=== PATIENT | male | born 2005 | race Caucasian/White ===

== ENCOUNTER 2025-06-07 14:33 | Emergency (ER) | payer BC, SELFPAY ==
[2025-06-07 14:48] VITALS: BP 155/95; PULSE 97; RESP 18; TEMP 36.7; O2SAT 98; BMI 26.7
--- NOTE | 2025-06-07 14:54 | CRLHL7_ITS ---
For Patients: As a result of the Century Cures Act, medical imaging exams and procedure reports are released immediately into your electronic medical record. You may view this report before your referring provider. If you have questions, please contact your health care provider. INDICATION: Right testicular pain. FINDINGS: A scrotal ultrasound shows normal size, contour, and echogenicity of the testicles with the right testicle measuring 4.9 x 2.7 x 2.5 cm and the left testicle measuring 4.1 x 3.1 x 2.5 cm. Color and spectral Doppler analysis shows normal arterial and venous blood flow to both testicles. Normal appearance of the epididymides. IMPRESSION: No acute abnormalities of the testicles or epididymides identified. Dictated by Jose Chau MD @ 06/07/2025 4:01:00 PM Dictated by: Jose Chau MD @ 06/07/2025 16:01:11 (Electronically Signed)
[2025-06-07 16:22] LABS: Appearance Urine Clear (Clear)
--- NOTE | 2025-06-07 17:13 | ED_ITS ---
[facility] - General Adult General Date Seen: 06/07/25 Chief complaint: Groin Pain Stated complaint: Testicular pain Source: patient Mode of arrival: ambulatory Limitations: no limitations History of Present Illness HPI narrative: Patient is a 20-year-old male presenting for right scrotal pain. Patient states he woke up about 06:30 with this pain. Pain is persisted until 11:30 and then seem to improve. Had another currently the pain that again improved. States the pain is currently a dull ache but has not fully gone away. States the pain never seem to be severe and was always tolerable. Has not taking anything yet for pain. Does not notice any discharge from his urethra. Denies dysuria, polyuria. No concern of STDs. States he initially thought there was a swollen cord on his testicle. Has never had pain like this before. Pain does not radiate to his abdomen. No associated nausea. Pain seems to be mostly on top of the testicle. Related Data Home Medications ?Medication ?Instructions ?Recorded ?Confirmed No Known Home Medications 06/07/2505/26 Allergies Allergy/AdvReac Type Severity Reaction Status Date / Time No Known Drug Allergies Allergy Verified 06/07/25 14:52 Review of Systems Narrative: Pertinent systems reviewed and were negative unless stated in HPI Exam Narrative: Exam Narrative: Const: Well-nourished, Well-developed, in no distress Eyes: PERRL, no conjunctival injection, and symmetrical lids HENT: Atraumatic external nose and ears. Moist mucous membranes. GI: Nontender/Nondistended, No rebound or guarding. : Normal cremasteric reflexes bilaterally, no swelling noted to the scrotum, mild tenderness to the superior pole of the right testicle. MSK:Extremities w/o deformity, Normal Active ROM Skin: Warm, Dry. No rashes or lesions. Neuro: Normal Muscle tone, No focal neurological deficits. Psych: Awake, Alert, & Oriented x3. Appropriate mood and affect. Const: Vital Signs, click to edit/add: Vital Signs - 24 hr 06/07/25 14:48 Temperature 98.1 F Pulse Rate [Pulse Oximeter] 97 Respiratory Rate 18 Blood Pressure [Ri ght Upper Arm] 155/95 H Pulse Oximetry 98 Oxygen Delivery Me thod Room Air Course Vital Signs Vital signs: Initial Vital Signs Temperature 98.1 F 06/07/25 14:48 Temperature Source Temporal Artery Scan 06/07/25 14:48 Pulse Rate 97 06/07/25 14:48 Pulse Rhythm Regular 06/07/25 14:48 Pulse Strength 3+ Normal 06/07/25 14:48 Respiratory Rate 18 06/07/25 14:48 Blood Pressure 155/95 H 06/07/25 14:48 Blood Pressure Mean 115 H 06/07/25 14:48 Blood Pressure Position Sitting 06/07/25 14:48 Pulse Oximetry 98 06/07/25 14:48 Oxygen Delivery Method Room Air 06/07/25 14:48 Vital Signs Temperature 98.1 F 06/07/25 14:48 Pulse Rate 97 06/07/25 14:48 Respiratory Rate 18 06/07/25 14:48 Blood Pressure 155/95 H 06/07/25 14:48 Pulse Oximetry 98 06/07/25 14:48 Oxygen Delivery Method Room Air 06/07/25 14:48 Temperature 98.1 F 06/07/25 14:48 Pulse Rate 97 06/07/25 14:48 Respiratory Rate 18 06/07/25 14:48 Blood Pressure 155/95 H 06/07/25 14:48 Pulse Oximetry 98 06/07/25 14:48 Oxygen Delivery Method Room Air 06/07/25 14:48 Medical Decision Making MDM Narrative Medical decision making narrative: Patient is a 20-year-old male presenting for testicular pain. Urinalysis was ordered along with a scrotal ultrasound. Differential at this time includes epididymitis, testicular torsion, varicocele, orchitis Urinalysis returned showing no acute concerning abnormalities. Ultrasound was done and returned showing no acute abnormalities. At this time I believe he is safe for discharge. He is agreeable to this plan. This time I cannot say for certain what is causing his symptoms but did give him return precautions. Lab Data Labs: Lab Results 06/07/25 Range/Units 15:20 Urine Color Yellow (Yellow) Urine Appearance Clear (Clear) Urine pH 7.0 (5.0-8.5) Ur Specific [place] 1.020 (1.000-1.030) Urine Protein Negative (Negative) Urine Glucose (UA) Negative (Negative) Urine Ketones Negative (Negative) Urine Blood Negative (Negative) Urine Nitrite Negative (Negative) Urine Bilirubin Negative (Negative) Urine Urobilinogen 1.0 (0.2-1.0) Ur Leukocyte Esterase Negative (Negative) Urine RBC 0-2 (0-2) Urine WBC 0-2 (0-5) Ur Squamous Epith Cells None (None-Few) Urine Bacteria None (None) Discharge Plan Discharge Clinical Impression: Right testicular pain Patient Disposition: Home, Self-Care Condition: Stable Instructions: Testicle Pain (ED) Additional Instructions: Take Tylenol and ibuprofen for your pain. Return to the emergency department for new or worsening symptoms. If you develops sudden severe testicular pain please return to emergency department immediately for re-evaluation. Prescriptions: No Action No Known Home Medications Stand Alone Forms: [employer] Info Instructions
== END 2025-06-07 17:28 | disposition home or self-care (01) ==
PROVIDERS: Emergency Provider Student in an Organized Health Care Education/Training Program
DX: N50.811 Right testicular pain (principal)
CPT/HCPCS: 76870; 81001; 93976; 99283